=== PATIENT | male | born 1985 | race Caucasian/White ===

== ENCOUNTER 2020-11-26 08:14 | Emergency (ER) | payer OTHER ==
[2020-11-26 08:28] VITALS: BP 136/74; PULSE 69
[2020-11-26] MEDS ORDERED: Lidocaine 2% with EPINEPHrine 1:100,000 20 ML MDV ONE (08:46)
[2020-11-26] MEDS ORDERED: Lidocaine 2% with EPINEPHrine 1:100,000 20 ML MDV INJECT ONE (08:52)
[2020-11-26] MEDS ORDERED: Bacitracin/Neomycin/Polymyxin B Oint 0.9 GM U/D Packet TOP ONE (08:58)
[2020-11-26] MEDS ORDERED: Diphtheria,Pertussis(Acell),Tetanus Vaccine 0.5 ML Syringe IM ONE (09:02)
--- NOTE | 2020-11-26 09:05 | EDM.PDOC ---
ED HPI GENERAL MEDICAL PROBLEM - General Chief Complaint: Laceration Stated Complaint: fall and laceration on right knee Time Seen by Provider: 11/26/20 08:30 Source of Information: Reports: Patient History Limitations: Reports: No Limitations - History of Present Illness INITIAL COMMENTS - FREE TEXT/NARRATIVE: Pt fell and hit right knee on metal grate Has 6 cm laceration Last tetanus 6 yrs ago Onset: Today, Sudden Duration: Minutes: Location: Reports: Lower Extremity, Right Quality: Reports: Ache Severity: Moderate Treatments [employer]: Reports: Dressing(s) Right Knee Pain Score (Numeric/FACES): 3 - Related Data Allergies Allergy/AdvReac Type Severity Reaction Status Date / Time No Known Allergies Allergy Verified 11/26/20 08:15 Home Meds: Home Meds . [No Known Home Meds] 11/26/20 [History] Social & Family History - Tobacco Use Tobacco Use Status *Q: Never Tobacco User Second Hand Smoke Exposure: No - Alcohol Use Days Per Week of Alcohol Use: 1 Number of Drinks Per Day: 2 Total Drinks Per Week: 2 - Recreational Drug Use Recreational Drug Use: No - Living Situation & Occupation Living situation: Reports: Single, Alone Occupation: Employed ED ROS GENERAL - Review of Systems Review Of Systems: See Below Skin: Reports: Wound, Other (6 cm longitudinal laceration to right knee) ED EXAM, SKIN/RASH Exam: See Below Exam Limited By: No Limitations Skin: Other (6 cm longitudinal laceration to right knee Neurovascular and tendon exam intact) ED SKIN PROCEDURES - Laceration/Wound Repair Right Knee Appearance: Subcutaneous Distal NVT: Neuro & Vascular Intact, No Tendon Injury Anesthetic Type: Local Local Anesthesia - Lidocaine (Xylocaine): 2% with EPI Local Anesthetic Volume: 4cc Skin Prep: Chlorhexidine (Hibiciens) Exploration/Debridement/Repair: Wound Explored, Minimal Debridement Closed with: Sutures Lac/Wound length In cm: 6 Suture Size: 3-0 # of Sutures: 5 Suture Type: Nylon Sterile Dressing Applied: Nurse Tetanus Status Addressed: Yes Complications: No Course - Vital Signs Last Recorded V/S: Last Vital Signs Temp 98.9 F 11/26/20 08:14 Pulse 69 11/26/20 08:14 Resp 16 11/26/20 08:14 BP 136/74 11/26/20 08:14 Pulse Ox 99 11/26/20 08:14 - Orders/Labs/Meds Meds: Medications Discontinued Medications Generic Name Dose Route Start Last Admin Trade Name Donte PRN Reason Stop Dose Admin Lidocaine/Epinephrine Confirm 11/26/20 08:46 11/26/20 08:53 Xylocaine 2% With Epinephrine 1:100,000 Administered 11/26/20 08:47 Not Given Dose 20 ml .ROUTE .STK-MED ONE Lidocaine/Epinephrine 20 ml 11/26/20 08:52 11/26/20 08:53 Xylocaine 2% With Epinephrine 1:100,000 INJECT 11/26/20 08:53 20 ml ONETIME ONE Administration Neomycin/Polymyxin/Bacitracin 1 each 11/26/20 08:58 Triple Antibiotic Oint TOP 11/26/20 08:59 ONETIME ONE Departure - Departure Time of Disposition: 09:15 Disposition: Home, Self-Care 01 Clinical Impression: Laceration of right knee Qualifiers: Encounter type: initial encounter Qualified Code(s): S81.011A - Laceration without foreign body, right knee, initial encounter - Discharge Information *PRESCRIPTION DRUG MONITORING PROGRAM REVIEWED*: Not Applicable *COPY OF PRESCRIPTION DRUG MONITORING REPORT IN PATIENT SCAR: Not Applicable Instructions: Laceration Care, Adult, Sutured Wound Care Additional Instructions: Keep wound clean Sutures out in 14 days Follow up in clinic Sepsis Event Note (ED) - Evaluation Sepsis Screening Result: No Definite Risk - Focused Exam Vital Signs: Vital Signs Temp Pulse Resp BP Pulse Ox 11/26/20 08:14 98.9 F 69 16 136/74 99
== END 2020-11-26 09:24 | disposition home or self-care (01) ==
LOC: LL.ED 08:14
DX: S81.011A Laceration without foreign body, right knee, initial encounter (principal); Z23 Encounter for immunization; W22.8XXA Striking against or struck by other objects, initial encounter; Y92.89 Other specified places as the place of occurrence of the external cause; Y99.0 Civilian activity done for income or pay
CPT/HCPCS: 12002; 90471; 90715; 99282-25